=== PATIENT | male | born 1965 | race Asian ===

== ENCOUNTER → 2024-02-14 06:16 | Day surgery (SDC) | payer OTHER, SELFPAY ==
[2024-02-14 08:00] LABS: Glucose - Point of Care 99 mg/dl (70-99)
== END ==
LOC: GI 06:16
PROVIDERS: ATTENDING PHYSICIAN Specialist
DX: Z12.11 Encounter for screening for malignant neoplasm of colon (principal); K31.89 Other diseases of stomach and duodenum; K31.A0 Gastric intestinal metaplasia, unspecified; Z86.0101 Personal history of adenomatous and serrated colon polyps; D12.8 Benign neoplasm of rectum
CPT/HCPCS: 45380; 43239; 88305; 82962; 88342